=== PATIENT | female | born 1980 | race African-American/Black ===

== ENCOUNTER 2024-07-19 04:15 | Inpatient (IN) | payer OTHER ==
[2024-07-13 12:39] VITALS: BMI 45.3
[2024-07-19] MEDS ORDERED: DEXMEDETOMIDINE HCL 200 MCG/2 ML IVPB ONE ×2 (07:06→10:36)
[2024-07-19] MEDS ORDERED: LIDOCAINE HCL/PF 2% SDV 5ML VIAL ONE (07:10)
[2024-07-19] MEDS ORDERED: PROPOFOL 100 ML ONE (07:10)
[2024-07-19] MEDS ORDERED: MIDAZOLAM HCL 2 MG/2 ML SINGLE DOSE VIAL ONE (07:10)
[2024-07-19] MEDS ORDERED: ROCURONIUM BROMIDE 50 MG/5 ML SYRINGE ONE ×4 (07:11→12:10)
[2024-07-19] MEDS ORDERED: SUCCINYLCHOLINE CHLORIDE 200 MG/10 ML SYRINGE ONE (07:11)
[2024-07-19] MEDS ORDERED: KETAMINE HCL 200 MG/20 ML VIAL ONE (07:18)
[2024-07-19] MEDS ORDERED: LIDOCAINE 1%/EPI 1:100000 (20 ML MULTI DOSE VIAL) ONE (07:19)
[2024-07-19] MEDS ORDERED: GENTAMICIN SO4 80 MG/2 ML VIAL ONE (07:19)
[2024-07-19] MEDS ORDERED: BUPIVACAINE LIPOSOME/PF (EXPAREL) 266 MG/20 ML VIAL ONE (07:19)
[2024-07-19] MEDS ORDERED: BUPIVACAINE HCL/PF 0.5% (5MG/ML) 10 ML VIAL ONE (07:19)
[2024-07-19 07:46] LABS: BASO % 0.6 % (0-2.0); EOS % 0.9 % (0-4.5); HEMATOCRIT 36.9 % (32.4-45.2); HEMOGLOBIN 11.2 GM/dL (10.7-15.3); LYMPH % 23.4 % (8-40); MCHC 30.3 g/dl (32.0-36.0); MEAN PLT VOLUME 8.9 fl (7.5-11.1); MONO % 12.2 % (3.8-10.2); NEUT % 62.9 % (42.8-82.8); PLATELET COUNT 332 10^3/uL (134-434); RBC 4.86 M/mm3 (3.60-5.2); RDW 16.1 % (11.6-15.6)
[2024-07-19] MEDS: LIDOCAINE 1%/EPI 1:100000 (20 ML MULTI DOSE VIAL) IJ ONE ×3 (07:49→10:57)
[2024-07-19] MEDS: VANCOMYCIN 1 GM in D5W (PRE-DOCKED) 1,000 MG/250 ML (RESTRICTED TO ID ONLY IVPB ONE ×2 (07:49→08:35)
[2024-07-19] MEDS: ceFAZolin SODIUM 1 GM VIAL IVPB ONE ×2 (07:49→08:35)
[2024-07-19] MEDS ORDERED: SCOPOLAMINE HYDROBROMIDE 1 PATCH PATCH.TD72 ONE (07:54)
[2024-07-19 08:14] LABS: INR 0.93 (0.83-1.09); PROTHROMBIN TIME (PATIENT) 10.7 SEC (9.7-13.0)
[2024-07-19] MEDS ORDERED: ceFAZolin SODIUM 1 GM VIAL ONE ×2 (08:35→12:11)
[2024-07-19] MEDS ORDERED: TRANEXAMIC ACID 1000 MG/10 ML VIAL ONE (08:35)
[2024-07-19] MEDS ORDERED: VANCOMYCIN 1,000 MG VIAL (RESTRICTED TO ID ONLY) ONE (08:35)
[2024-07-19] MEDS ORDERED: DEXAMETHASONE SOD PHOSPHATE 4 MG/1 ML VIAL ONE (08:49)
[2024-07-19] MEDS ORDERED: BACITRACIN ZINC 15 GM TUBE TOPICAL OINTMENT ONE (09:07)
[2024-07-19] MEDS: THROMBIN (BOVINE) 20,000 UNIT VIAL TP ONE (09:31)
[2024-07-19] MEDS ORDERED: PROPOFOL 80 ML ONE ×2 (09:45→12:13)
[2024-07-19] MEDS: HYDROGEN PEROXIDE 473 ML PO ONE (09:47)
[2024-07-19] MEDS: GENTAMICIN SO4 80 MG/2 ML VIAL IVPB ONE (09:47)
[2024-07-19] MEDS ORDERED: HYDROmorphone HCl 2 MG/ML VIAL ONE (11:25)
[2024-07-19] MEDS: ceFAZolin 2 GRAM PREMIX BAG IVPB ONE ×2 (11:30)
[2024-07-19] MEDS: BUPIVACAINE LIPOSOME/PF (EXPAREL) 266 MG/20 ML VIAL NR ONE ×2 (11:31→13:15)
[2024-07-19] MEDS: BUPIVACAINE HCL/PF 0.5% (5MG/ML) 10 ML VIAL IJ ONE ×2 (11:31→13:15)
[2024-07-19] MEDS ORDERED: oxyCODONE HCL 5 MG TABLET PO PRN ×2 (13:21)
[2024-07-19] MEDS ORDERED: diphenhydrAMINE HCL 25 MG CAPSULE (FP) PO PRN (13:21)
[2024-07-19] MEDS ORDERED: PROMETHAZINE HCL 25 MG/1 ML VIAL IVPB PRN (14:27)
[2024-07-19] MEDS ORDERED: ONDANSETRON 4 MG/2 ML VIAL IVPUSH PRN (14:27)
[2024-07-19] MEDS ORDERED: LACTATED RINGERS SOLUTION 1,000 ML IV SCH (14:30)
[2024-07-19] MEDS: ONDANSETRON 4 MG/2 ML VIAL IVPUSH PRN (14:38)
[2024-07-19] MEDS: ACETAMINOPHEN 1000 MG/100 ML BAG IVPB ONE (14:42)
[2024-07-19] MEDS ORDERED: HYDROmorphone *PCA* 10MG/50ML DISP.SYRIN ONE (14:58)
[2024-07-19] MEDS: HYDROmorphone *PCA* 10MG/50ML DISP.SYRIN PCA SCH (15:33)
[2024-07-19] MEDS: LACTATED RINGERS SOLUTION 1,000 ML/1,000 ML INFUS.BAG IV SCH (15:37)
[2024-07-19] MEDS ORDERED: ALBUTEROL SO4 HFA INHALER IH PRN (15:39)
[2024-07-19] MEDS ORDERED: ZOLPIDEM TARTRATE 10 MG PO PRN (15:39)
[2024-07-19] MEDS ORDERED: TOPIRAMATE 50 MG PO SCH (15:45)
[2024-07-19] MEDS: CEFAZOLIN 1 GM/D5W 1 GM/50 ML BAG IVPB SCH (19:53)
[2024-07-19] MEDS: METHOCARBAMOL 500 MG TABLET PO SCH (19:53)
[2024-07-19] MEDS: morphine SULFATE 4 MG/ML VIAL IVPUSH PRN (20:14)
[2024-07-19] MEDS: DOCUSATE SODIUM 100 MG CAPSULE (FP) PO SCH (20:31)
[2024-07-19] MEDS: HEPARIN NA (PORCINE) 5,000 UNITS/ML 1ML VIAL SQ SCH (20:31)
[2024-07-19] MEDS: SULFASALAZINE 500 MG PO SCH (20:32)
[2024-07-19] MEDS: PATIENT'S OWN MEDICATION (NON-FORMULARY) (Fluticasone Propion/Salmeterol [Wixela 500-50 In IH SCH (20:32)
[2024-07-19] MEDS: diazePAM CARPU-JECT 10 MG/2 ML DISP.SYRIN IVPUSH ONE (20:34)
[2024-07-19] MEDS ORDERED: FLUTICASONE PROP 0.05% 16 GM NASAL SPRAY NS ONE (20:56)
[2024-07-19] MEDS: GABAPENTIN 100 MG CAPSULE PO SCH (21:57)
[2024-07-19] MEDS: ZOLPIDEM TARTRATE 5 MG TABLET PO PRN (21:57)
[2024-07-19] MEDS: HYDROXYCHLOROQUINE SO4 200 MG TABLET (FP) PO SCH (21:57)
[2024-07-19] MEDS: FLUTICASONE PROP 0.05% 16 GM NASAL SPRAY NS SCH (22:14)
[2024-07-19] MEDS: BUDESONIDE/FORMETEROL FUMARATE 160/4.5 mcg INHALER IH SCH (22:14)
[2024-07-20] MEDS: HYDROmorphone *PCA* 10MG/50ML DISP.SYRIN PCA SCH ×2 (03:04→19:30)
[2024-07-20 09:01] LABS: HEMATOCRIT 31.5 % (32.4-45.2); HEMOGLOBIN 9.9 GM/dL (10.7-15.3); MCH 23.3 pg (25.7-33.7); MCHC 31.5 g/dl (32.0-36.0); MEAN CELL VOLUME 74.1 fl (80-96); MEAN PLT VOLUME 9.3 fl (7.5-11.1); PLATELET COUNT 245 10^3/uL (134-434); RBC 4.25 M/mm3 (3.60-5.2); WHITE BLOOD COUNT 13.2 K/mm3 (4.0-10.0)
[2024-07-20 09:03] LABS: HEMATOCRIT 32.2 % (32.4-45.2); MCH 23.3 pg (25.7-33.7); MCHC 31.2 g/dl (32.0-36.0); MEAN CELL VOLUME 74.9 fl (80-96); MEAN PLT VOLUME 9.2 fl (7.5-11.1); PLATELET COUNT 241 10^3/uL (134-434); RDW 15.9 % (11.6-15.6)
[2024-07-20 09:41] LABS: CALCIUM 8.5 mg/dL (8.5-10.1); CREATININE 0.7 mg/dL (0.55-1.3)
[2024-07-20 09:42] LABS: ALBUMIN 2.9 g/dl (3.4-5.0); BLOOD UREA NITROGEN 9.9 mg/dL (7-18); PHOSPHOROUS 3.7 mg/dL (2.5-4.9)
[2024-07-20 09:43] LABS: BILIRUBIN,TOTAL 0.5 mg/dL (0.2-1); MAGNESIUM 1.8 mg/dL (1.8-2.4); TOT PROT 6.1 g/dl (6.4-8.2)
[2024-07-20] MEDS ORDERED: PATIENT'S OWN MEDICATION (NON-FORMULARY) (Atenolol/Chlorthalidone [Atenolol-Chlorthalidone PO SCH (10:00)
[2024-07-20] MEDS ORDERED: PATIENT'S OWN MEDICATION (NON-FORMULARY) (Spironolactone [Aldactone] 50 MG Tablet) PO SCH (10:00)
[2024-07-20] MEDS ORDERED: PATIENT'S OWN MEDICATION (NON-FORMULARY) (Valsartan [Valsartan] 320 MG Tablet) PO SCH (10:00)
[2024-07-20] MEDS ORDERED: PATIENT'S OWN MEDICATION (NON-FORMULARY) (Carbamazepine [Carbamazepine Er] 100 MG Cpmp.12h PO SCH (10:00)
[2024-07-20] MEDS: CHLORTHALIDONE 25 MG TABLET PO SCH (10:19)
[2024-07-20] MEDS: SPIRONOLACTONE 25 MG TABLET PO SCH (10:19)
[2024-07-20] MEDS: FERROUS SO4 325 MG TABLET (FP) PO SCH (10:19)
[2024-07-20] MEDS: ATENOLOL 50 MG TABLET (FP) PO SCH (10:19)
[2024-07-20] MEDS: VALSARTAN 160 MG TABLET PO SCH (10:19)
[2024-07-20] MEDS: amLODIPine BESYLATE 10 MG TABLET (FP) PO SCH (10:19)
[2024-07-20] MEDS: CITALOPRAM HYDROBROMIDE 10 MG TABLET PO SCH (10:20)
[2024-07-20] MEDS: POLYETHYLENE GLYCOL (HEALTHYLAX) 3350 17 GM PACKET PO SCH (10:21)
[2024-07-20] MEDS: FOLIC ACID 1 MG TABLET (FP) PO SCH (10:21)
[2024-07-20] MEDS: carBAMazepine 100 MG TAB.CHEW PO SCH (11:02)
[2024-07-20] MEDS: TIOTROPIUM BROMIDE 2.5 MCG (SPIRIVA) RESPIMAT INHALER IH SCH (12:38)
[2024-07-20] MEDS: TOPIRAMATE 25 MG TABLET PO SCH (12:43)
[2024-07-20 15:59] VITALS: RESP 18
[2024-07-21] MEDS: MELATONIN 5 MG TABLETS PO ONE (03:00)
[2024-07-21] MEDS: LACTATED RINGERS SOLUTION 1,000 ML/1,000 ML INFUS.BAG IV SCH (12:49)
[2024-07-21] MEDS ORDERED: morphine SULFATE 4 MG/ML VIAL IVPUSH PRN (13:45)
[2024-07-21] MEDS: ACETAMINOPHEN 325 MG TABLET (FP) PO SCH (14:56)
[2024-07-22 10:04] VITALS: BP 136/80; PULSE 86; TEMP 98.7
== END 2024-07-22 14:42 | disposition home or self-care (01) | DRG 430 ==
LOC: J2C 04:15 → J8W 17:23
PROVIDERS: ADMIT Neurological Surgery; ATTEND Nurse Practitioner Family
PROC: 0RG6071 Fusion of Thoracic Vertebral Joint with Autologous Tissue Substitute, Posterior Approach, Posterior Column, Open Approach (ICD-10-PCS; 2024-07-19)
PROC: 0RB30ZZ Excision of Cervical Vertebral Disc, Open Approach (ICD-10-PCS; 2024-07-19)
PROC: 00NW0ZZ Release Cervical Spinal Cord, Open Approach (ICD-10-PCS; 2024-07-19)
PROC: 0RP104Z Removal of Internal Fixation Device from Cervical Vertebral Joint, Open Approach (ICD-10-PCS; 2024-07-19)
PROC: 0RG4071 Fusion of Cervicothoracic Vertebral Joint with Autologous Tissue Substitute, Posterior Approach, Posterior Column, Open Approach (ICD-10-PCS; 2024-07-19)
PROC: 0RG2071 Fusion of 2 or more Cervical Vertebral Joints with Autologous Tissue Substitute, Posterior Approach, Posterior Column, Open Approach (ICD-10-PCS; 2024-07-19)
PROC: 0PP304Z Removal of Internal Fixation Device from Cervical Vertebra, Open Approach (ICD-10-PCS; 2024-07-19)
PROC: 01N10ZZ Release Cervical Nerve, Open Approach (ICD-10-PCS; 2024-07-19)
PROC: 4A11X4G Monitoring of Peripheral Nervous Electrical Activity, Intraoperative, External Approach (ICD-10-PCS; 2024-07-19)
PROC: 0RG20A0 Fusion of 2 or more Cervical Vertebral Joints with Interbody Fusion Device, Anterior Approach, Anterior Column, Open Approach (ICD-10-PCS; principal; 2024-07-19 08:00)
PROC: 0RG2071 Fusion of 2 or more Cervical Vertebral Joints with Autologous Tissue Substitute, Posterior Approach, Posterior Column, Open Approach (ICD-10-PCS; 2024-07-19 08:00)
DX: M47.12 Other spondylosis with myelopathy, cervical region (principal); Z68.42 Body mass index [BMI] 45.0-49.9, adult; M40.292 Other kyphosis, cervical region; M06.9 Rheumatoid arthritis, unspecified; I10 Essential (primary) hypertension; F41.9 Anxiety disorder, unspecified; J44.9 Chronic obstructive pulmonary disease, unspecified; M53.2X2 Spinal instabilities, cervical region
CPT/HCPCS: 36415; 72125-TC; 76000-TC-FY; 80053; 81025; 83735; 84100; 85025; 85027; 85610; 86850; 86900; 86901; 94760; 97116-GP; 97161-GP; C1713; J0131; J1644

== ENCOUNTER 2024-08-03 11:10 | Inpatient (IN) | payer OTHER ==
[2024-08-03 11:21] VITALS: BMI 44.6
[2024-08-03 12:52] LABS: BASO % 0.6 % (0-2.0); EOS % 0.7 % (0-4.5); HEMOGLOBIN 10.2 GM/dL (10.7-15.3); INR 0.99 (0.83-1.09); LYMPH % 12.6 % (8-40); MCH 22.8 pg (25.7-33.7); MCHC 30.8 g/dl (32.0-36.0); MEAN PLT VOLUME 8.3 fl (7.5-11.1); MONO % 7.9 % (3.8-10.2); NEUT % 78.2 % (42.8-82.8); PLATELET COUNT 503 10^3/uL (134-434); PROTHROMBIN TIME (PATIENT) 11.2 SEC (9.7-13.0); RBC 4.46 M/mm3 (3.60-5.2); RDW 16.5 % (11.6-15.6); WHITE BLOOD COUNT 9.9 K/mm3 (4.0-10.0)
[2024-08-03 12:54] LABS: ACTIVATED PTT 33.2 SECONDS (25.2-36.5)
[2024-08-03 13:12] LABS: POTASSIUM 4.2 mmol/L (3.5-5.1)
[2024-08-03 13:14] LABS: ALBUMIN 3.2 g/dl (3.4-5.0); CALCIUM 9.1 mg/dL (8.5-10.1)
[2024-08-03 13:15] LABS: BLOOD UREA NITROGEN 19.8 mg/dL (7-18)
[2024-08-03 13:18] LABS: CREATININE 0.9 mg/dL (0.55-1.3)
[2024-08-03 13:19] LABS: BILIRUBIN,TOTAL 0.2 mg/dL (0.2-1); TOT PROT 6.9 g/dl (6.4-8.2)
[2024-08-03] MEDS ORDERED: HYDROmorphone HCL CARPU-JECT 2 MG/1 ML DISP.SYRIN ONE ×2 (13:43→18:53)
[2024-08-03] MEDS: HYDROmorphone HCl 2 MG/ML VIAL IVPUSH ONE ×2 (13:45→19:02)
[2024-08-03] MEDS: LACTATED RINGERS SOLUTION 1000 ML INFUS.BAG IV ONE (19:48)
[2024-08-03] MEDS ORDERED: HYDROmorphone HCL CARPU-JECT 2 MG/1 ML DISP.SYRIN IVPUSH PRN (21:05)
[2024-08-03] MEDS: SODIUM CHLORIDE 1,000 ML IV STA ×2 (21:40→23:57)
[2024-08-03] MEDS: ACETAMINOPHEN 1000 MG/100 ML BAG IVPB PRN (21:41)
[2024-08-03 23:59] LABS: EPI CELLS >36 /uL (0-25.1); HYALINE CASTS 1 /uL (0-3.1); URINE APPEARANCE CLOUDY; URINE BACTERIA 2498 /uL (0-1359); URINE BILIRUBIN NEGATIVE (NEGATIVE); URINE COLOR YELLOW; URINE GLUCOSE (UA) NEGATIVE (NEGATIVE); URINE KETONE TRACE (NEGATIVE); URINE LEUK ESTERASE 2+ (NEGATIVE); URINE NITRITE NEGATIVE (NEGATIVE); URINE PROTEIN 2+ (NEGATIVE); URINE RBC 63 /uL (0-23.9); URINE WBC 1152 /uL (0-25.8)
[2024-08-04] MEDS: ACETAMINOPHEN 1000 MG/100 ML BAG IVPB SCH (00:54)
[2024-08-04] MEDS ORDERED: CEFTRIAXONE 1 GM in DEXTROSE 5%-WATER - 50 ML IVPB SCH (00:59)
[2024-08-04] MEDS: HYDROmorphone HCL CARPU-JECT 2 MG/1 ML DISP.SYRIN IVPUSH ONE ×2 (01:57→11:17)
[2024-08-04] MEDS: CEFTRIAXONE 1 G/50 ML PREMIX 50 ML IVPB SCH (02:02)
[2024-08-04] MEDS: GABAPENTIN 100 MG CAPSULE PO SCH ×2 (06:35→14:16)
[2024-08-04] MEDS: KETOROLAC TROMETHAMINE 30 MG/1 ML VIAL IVPUSH PRN (08:25)
[2024-08-04] MEDS: HYDROmorphone HCl 2 MG/ML VIAL IVPUSH ONE (09:20)
[2024-08-04 09:59] LABS: HEMATOCRIT 31.1 % (32.4-45.2); HEMOGLOBIN 9.9 GM/dL (10.7-15.3); MCH 23.5 pg (25.7-33.7); MCHC 31.7 g/dl (32.0-36.0); MEAN CELL VOLUME 74.1 fl (80-96); MEAN PLT VOLUME 8.4 fl (7.5-11.1); PLATELET COUNT 424 10^3/uL (134-434); RDW 16.3 % (11.6-15.6); WHITE BLOOD COUNT 7.1 K/mm3 (4.0-10.0)
[2024-08-04 10:29] LABS: POTASSIUM 3.9 mmol/L (3.5-5.1)
[2024-08-04 10:41] LABS: MAGNESIUM 2.2 mg/dL (1.8-2.4)
[2024-08-04 10:44] LABS: BLOOD UREA NITROGEN 20.1 mg/dL (7-18); CALCIUM 8.8 mg/dL (8.5-10.1); CREATININE 0.8 mg/dL (0.55-1.3)
[2024-08-04 10:47] LABS: BILIRUBIN,TOTAL 0.3 mg/dL (0.2-1); PHOSPHOROUS 3.8 mg/dL (2.5-4.9)
[2024-08-04 10:49] LABS: TOT PROT 6.7 g/dl (6.4-8.2)
[2024-08-05 08:52] LABS: BASO % 0.5 % (0-2.0); EOS % 2.3 % (0-4.5); HEMATOCRIT 33.2 % (32.4-45.2); HEMOGLOBIN 10.1 GM/dL (10.7-15.3); LYMPH % 22.4 % (8-40); MCH 22.9 pg (25.7-33.7); MCHC 30.4 g/dl (32.0-36.0); MEAN CELL VOLUME 75.3 fl (80-96); MEAN PLT VOLUME 8.2 fl (7.5-11.1); MONO % 9.9 % (3.8-10.2); NEUT % 64.9 % (42.8-82.8); PLATELET COUNT 451 10^3/uL (134-434); RBC 4.41 M/mm3 (3.60-5.2); RDW 16.1 % (11.6-15.6); WHITE BLOOD COUNT 6.3 K/mm3 (4.0-10.0)
[2024-08-05 09:27] LABS: ALBUMIN 3.1 g/dl (3.4-5.0)
[2024-08-05 09:28] LABS: BLOOD UREA NITROGEN 17.5 mg/dL (7-18); CALCIUM 9.1 mg/dL (8.5-10.1); MAGNESIUM 2.2 mg/dL (1.8-2.4)
[2024-08-05 09:30] LABS: CREATININE 0.7 mg/dL (0.55-1.3)
[2024-08-05 09:31] LABS: PHOSPHOROUS 3.3 mg/dL (2.5-4.9)
[2024-08-05 09:32] LABS: BILIRUBIN,TOTAL 0.8 mg/dL (0.2-1); TOT PROT 6.9 g/dl (6.4-8.2)
[2024-08-05 12:40] VITALS: BP 110/50; PULSE 100; RESP 18; TEMP 98.8
[2024-08-05] MEDS: amLODIPine BESYLATE 10 MG TABLET (FP) PO ONE (12:42)
[2024-08-06] MEDS ORDERED: amLODIPine BESYLATE 10 MG TABLET (FP) PO SCH (10:00)
== END 2024-08-05 18:23 | disposition home or self-care (01) | DRG 920 ==
LOC: JER 11:10 → JERBED 18:00 → OBSVTOIN 18:00 → J6S 20:39
PROVIDERS: ADMIT Internal Medicine; ATTEND Internal Medicine
DX: M96.843 Postprocedural seroma of a musculoskeletal structure following other procedure (principal); Z68.41 Body mass index [BMI] 40.0-44.9, adult; Y83.9 Surgical procedure, unspecified as the cause of abnormal reaction of the patient, or of later complication, without mention of misadventure at the time of the procedure; E66.01 Morbid (severe) obesity due to excess calories; I10 Essential (primary) hypertension; I95.9 Hypotension, unspecified; M06.9 Rheumatoid arthritis, unspecified
CPT/HCPCS: 36415; 71045-TC-FY; 72125-TC; 72141-TC; 72146-TC; 72148-TC; 80053; 81003; 83540; 83550; 83735; 84100; 85025; 85027; 85610; 85730; 86850; 86900; 86901; 87086; 87186; 93005; 93010; 97116-GP; 97162-GP; 99285-25; J0131